=== PATIENT | male | born 1995 | race African-American/Black ===

== ENCOUNTER 2022-02-20 10:18 | Inpatient (IN) ==
--- NOTE | 2022-02-20 10:33 | Emergency Department Note ---
History of Present Illness General Chief complaint: Abdominal Pain Stated complaint: AB PAIN, WEAKNESS History of Present Illness This is a 25 y/o male that presents to the emergency department via EMS with c/o generalized abdominal pain x 2 days and headache status post seizure that occurred 2 days ago. Abdominal pain is described as crampy and shooting with any touch and rated 10/10. Denies nausea and vomiting. Has had multiple episodes of diarrhea, and reports that there was blood on the toilet paper when he wiped but none on the stool or in the toilet. He denies any urinary symptoms and hematuria. Has been experiencing some lightheadedness, which he believes is due to lack of eating. Denies any prior abdominal surgeries or problems. Patient notes he has been staying with a friend. 48 hours ago, he reports he had two seizures that he does not remember but that were described to him by his friend 's mother. He did hit his head and has an abrasion on his left jain area. Denies headache and dizziness. EMS was called for continued seizures and pt was then taken to [facility] per review of record. Patient notes that following the seizure event, he notes that his friend kicked him out of where he was staying, and so he has been homeless for two days. He describes wanting to "stab her right in the chest" for kicking him out, but states that because her two young children were home, he did not. He has not eaten or drank anything for two days. He has also been unable to get his medications, notedly his Seroquel and Depakote, due to an insurance discrepancy reportedly. The only meds he received recently were those given to him in the hospital two days ago. He describes hallucinations he was having this morning of dogs running in front of him that were not really there. No fevers or recent infectious symptoms. Per review of the EMR it appears that the patient was evaluated on 02/18/2022 at 2340 HRS at [facility] for reported seizure activity. Home Medications Medication Instructions Recorded Confirmed Type omeprazole 20 mg tablet,delayed 20 mg PO DAILY 12/17/20 02/20/22 History release albuterol sulfate 90 mcg/actuation 2 inh inhalation QID PRN Shortness 02/21/21 02/20/22 History aerosol inhaler Of Breath Or Wheezing bismuth subsalicylate 262 mg/15 mL 524 mg PO BID PRN gastric upset 01/22/22 02/20/22 History oral suspension (Pepto-Bismol) diphenhydramine HCl 50 mg capsule 50 mg PO HS 01/22/22 02/20/22 History divalproex 250 mg tablet,delayed 250 mg PO AMHS 01/22/22 02/20/22 History release divalproex 500 mg tablet,delayed 1,000 mg PO AMHS 01/22/22 02/20/22 History release (Depakote) hydroxyzine pamoate 50 mg capsule 50 mg PO BID 01/22/22 02/20/22 History quetiapine 100 mg tablet 100 mg PO BID 01/22/22 02/20/22 History Allergies Allergy/AdvReac Type Severity Reaction Status Date / Time No Known Allergies Allergy Verified 01/25/22 20:09 Past Med/Surg History Medical History ADHD Asthma Bipolar disorder Fracture of fifth metacarpal bone No pertinent family history Schizophrenia Seizures Unspecified episodic mood disorder Surgical History No significant past surgical history Social History Smoking Status: Current every day smoker Tobacco Type: Cigarettes Preferred Language: [place] Citizen Feels Safe at Home: Yes Review of Systems A total of 10 systems reviewed and were otherwise negative Physical Exam Vital Signs Vital Signs - 24 hr 02/20/22 10:27 02/20/22 10:57 02/20/22 12:51 Temperature 36.7 C Temperature Source Oral Pulse Rate 69 Pulse Rate [Right Finger] 68 Pulse Rhythm Regular Pulse Rhythm [Right Finger] Regular Respiratory Rate 18 18 Respiratory Effort / Characteristics Non-Labored Spontaneous Respiratory Depth Normal Respiratory Pattern Regular Blood Pressure 149/87 H Blood Pressure [Right Arm] 112/62 Blood Pressure Mean 107 Blood Pressure Mean [Right Arm] 78 Blood Pressure Position [Right Arm] Lying Pulse Oximetry 98 99 97 Oxygen Delivery Method Room Air Room Air Room Air Sepsis Recent Fever Within 48 Hours No Sepsis New/Unexplained Change in Mental Status No Sepsis Action Taken by Nursing No Action Required VITAL SIGNS - Vital signs and nursing notes were reviewed. Stable and afebrile. GENERAL -26-year-old male appearing his stated age who is in no acute distress. Communicates well with provider and answers questions appropriately. SKIN -right sided forehead abrasion noted. No active bleeding. No signs of infection. No meningeal or petechial rash. HEAD - NC/AT. EYES - PERRL with EOMI bilaterally. Sclera anicteric. EARS - No deformities of external structures noted on gross examination bilaterally. No pain elicited with palpation of the tragus bilaterally. External auditory canals without discharge or otorrhea. Tympanic membranes pearly castaneda without retraction or bulging. No fluid or purulent material visualized behind the TM. Handle of malleus, umbo, cone of light, pars tensa/flaccid all easily visualized. NOSE - Midline and without cyanosis. No epistaxis or purulent drainage noted. Septum midline without deviation or septal hematoma noted. MOUTH/OROPHARYNX - Without perioral cyanosis. Buccal mucosa pink and moist and without leukoplakia. Tongue midline with equal elevation of palate bilaterally. No tonsillar hypertrophy, erythema, or exudates noted. Fair dentition noted. NECK - Neck with FROM. No nuchal rigidity. LUNGS - Chest wall symmetric without accessory muscle use, intercostals retractions, or central cyanosis. Normal vesicular breath sounds CTA B/L. No wheezes, rales, or rhonchi appreciated. CARDIAC - RRR with S1/S2. No murmur, rubs, or gallops appreciated. ABDOMEN - Abdominal contour normal without pulsations or visible masses. BS normoactive all four quadrants. there is generalized abdominal tenderness to palpation. No guarding or rigidity. No palpable masses, hepatosplenomegaly, or ascites noted. EXTREMITIES - No clubbing or peripheral cyanosis. +5/5 strength noted in UE/LE bilaterally. NEUROLOGIC - Cranial nerves II through XII grossly intact. PSYCH - A&Ox3 and cooperates fully with examiner. Pt is very pleasant and interacts well with examiner. Course Administered Medications Divalproex Sodium (Divalproex Delay Release 500 Mg Tab) 500 mg PO BID [facility] Stop: 03/22/22 13:59 Last Admin: 02/20/22 14:41 Dose: 500 mg Documented By: MONIQUE Lacosamide (Lacosamide 50 Mg Tablet) 100 mg PO BID [facility] Stop: 03/22/22 13:59 Last Admin: 12/05/22 14:42 Dose: 100 mg Documented By: MONIQUE Discontinued Medications Ioversol (Optiray 350 100ml) 94 ml IV ONCE ONE Stop: 02/20/22 13:13 Last Admin: 02/20/22 13:12 Dose: 94 ml Documented By: RUIZ Medical Decision Making Laboratory Data Result diagrams: 02/20/22 11:20 02/20/22 11:20 Lab Results 02/20/22 02/20/22 02/20/22 Range/Units 11:20 11:20 11:20 WBC 6.42 (4.8-10.8) K/ul RBC 4.18 L (4.63-6.08) M/uL Hgb 13.0 L (14.0-18.0) g/dl Hct 38.0 L (40.1-51.0) % MCV 90.9 (80.0-100.0) fL MCH 31.1 (25.0-34.0) pg MCHC 34.2 (32.0-36.0) g/dL RDW Std Deviation 46.3 (36.4-46.3) fL RDW Coeff of Geraldine 13.7 (11.5-14.5) % Plt Count 263 (130-400) K/uL MPV 11.4 (9.4-12.4) fL Immature Gran % (Auto) 0.2 % Neut % (Auto) 40.1 % Lymph % (Auto) 45.0 % [place] % (Auto) 8.6 % Eos % (Auto) 5.5 % Baso % (Auto) 0.6 % Neut # (Auto) 2.58 (1.4-6.5) K/uL Lymph # (Auto) 2.89 (1.2-3.4) K/uL [place] # (Auto) 0.55 (0.24-0.82) K/uL Eos # (Auto) 0.35 (0-0.50) K/uL Baso # (Auto) 0.04 (0-0.2) K/uL Immature Gran # (Auto) 0.01 (0.00-0.02) K/uL Sodium 139 (136-145) mmol/L Potassium 3.6 (3.5-5.1) mmol/L Chloride 105 (98-107) mmol/L Carbon Dioxide 26 (21-32) mmol/L Anion Gap 8 (3-11) BUN 17 (6-23) mg/dl Creatinine 0.96 (0.6-1.4) mg/dl Est Cr Clr Drug Dosing 118.3 ml/min Est GFR ( Amer) 124.2 ml/min Est GFR (Non-Af Amer) 107.1 ml/min BUN/Creatinine Ratio 17.7 (10-20) Glucose 85 (70-99(Fasting)) mg/dl Calcium 8.9 (8.5-10.1) mg/dl Magnesium 1.7 (1.7-2.4) mg/dl Total Bilirubin 0.4 (0.2-1.0) mg/dl AST 15 (13-39) U/L ALT 13 (7-52) U/L Alkaline Phosphatase 41 (34-104) U/L Troponin I High Sens 2.4 (0-20) pg/ml Total Protein 6.2 (6.0-8.3) gm/dl Albumin 3.8 (3.4-5.0) gm/dl Globulin 2.4 L (2.5-4.0) gm/dl Albumin/Globulin Ratio 1.6 (0.9-2) Lipase 26 (11-82) U/L TSH (0.300-4.500) uIu/ml Urine Color Urine Appearance (Clear) Urine pH (4.5-7.5) Ur Specific [place] (1.000-1.030) Urine Protein (Negative) Urine Glucose (UA) (Negative) Urine Ketones (Negative) Urine Blood (Negative) Urine Nitrite (Negative) Urine Bilirubin (Negative) Urine Urobilinogen (Negative) Ur Leukocyte Esterase (Negative) Salicylates (3.0-30) mg/dl Urine Opiates Screen (Neg) Ur Methadone, Qual (Neg) Acetaminophen (10-30) ug/ml Urine Barbiturates (Neg) Valproic Acid (50-100) mcg/ml Ur Phencyclidine (PCP) (Neg) U Amphetamin/Meth Scrn (Neg) MDMA (Ecstasy) Screen (Neg) U Benzodiazepines Scrn (Neg) Ur Cocaine Metabolite (Neg) U Marijuana (THC) Screen (Neg) Ethyl Alcohol mg/dL < 10.0 (<10.0) mg/dl SARS-CoV-2, RNA, NAAT (NEGATIVE) 02/20/22 02/20/22 02/20/22 Range/Units 11:20 11:20 11:20 WBC (4.8-10.8) K/ul RBC (4.63-6.08) M/uL Hgb (14.0-18.0) g/dl Hct (40.1-51.0) % MCV (80.0-100.0) fL MCH (25.0-34.0) pg MCHC (32.0-36.0) g/dL RDW Std Deviation (36.4-46.3) fL RDW Coeff of Geraldine (11.5-14.5) % Plt Count (130-400) K/uL MPV (9.4-12.4) fL Immature Gran % (Auto) % Neut % (Auto) % Lymph % (Auto) % [place] % (Auto) % Eos % (Auto) % Baso % (Auto) % Neut # (Auto) (1.4-6.5) K/uL Lymph # (Auto) (1.2-3.4) K/uL [place] # (Auto) (0.24-0.82) K/uL Eos # (Auto) (0-0.50) K/uL Baso # (Auto) (0-0.2) K/uL Immature Gran # (Auto) (0.00-0.02) K/uL Sodium (136-145) mmol/L Potassium (3.5-5.1) mmol/L Chloride (98-107) mmol/L Carbon Dioxide (21-32) mmol/L Anion Gap (3-11) BUN (6-23) mg/dl Creatinine (0.6-1.4) mg/dl Est Cr Clr Drug Dosing ml/min Est GFR ( Amer) ml/min Est GFR (Non-Af Amer) ml/min BUN/Creatinine Ratio (10-20) Glucose (70-99(Fasting)) mg/dl Calcium (8.5-10.1) mg/dl Magnesium (1.7-2.4) mg/dl Total Bilirubin (0.2-1.0) mg/dl AST (13-39) U/L ALT (7-52) U/L Alkaline Phosphatase (34-104) U/L Troponin I High Sens (0-20) pg/ml Total Protein (6.0-8.3) gm/dl Albumin (3.4-5.0) gm/dl Globulin (2.5-4.0) gm/dl Albumin/Globulin Ratio (0.9-2) Lipase (11-82) U/L TSH 1.820 (0.300-4.500) uIu/ml Urine Color Yellow Urine Appearance Clear (Clear) Urine pH 7.0 (4.5-7.5) Ur Specific [place] 1.029 (1.000-1.030) Urine Protein Negative (Negative) Urine Glucose (UA) Negative (Negative) Urine Ketones 1+ H (Negative) Urine Blood Negative (Negative) Urine Nitrite Negative (Negative) Urine Bilirubin Negative (Negative) Urine Urobilinogen Negative (Negative) Ur Leukocyte Esterase Negative (Negative) Salicylates < 3.0 L (3.0-30) mg/dl Urine Opiates Screen (Neg) Ur Methadone, Qual (Neg) Acetaminophen < 3 L (10-30) ug/ml Urine Barbiturates (Neg) Valproic Acid (50-100) mcg/ml Ur Phencyclidine (PCP) (Neg) U Amphetamin/Meth Scrn (Neg) MDMA (Ecstasy) Screen (Neg) U Benzodiazepines Scrn (Neg) Ur Cocaine Metabolite (Neg) U Marijuana (THC) Screen (Neg) Ethyl Alcohol mg/dL (<10.0) mg/dl SARS-CoV-2, RNA, NAAT (NEGATIVE) 02/20/22 02/20/22 02/20/22 Range/Units 11:20 11:20 12:48 WBC (4.8-10.8) K/ul RBC (4.63-6.08) M/uL Hgb (14.0-18.0) g/dl Hct (40.1-51.0) % MCV (80.0-100.0) fL MCH (25.0-34.0) pg MCHC (32.0-36.0) g/dL RDW Std Deviation (36.4-46.3) fL RDW Coeff of Geraldine (11.5-14.5) % Plt Count (130-400) K/uL MPV (9.4-12.4) fL Immature Gran % (Auto) % Neut % (Auto) % Lymph % (Auto) % [place] % (Auto) % Eos % (Auto) % Baso % (Auto) % Neut # (Auto) (1.4-6.5) K/uL Lymph # (Auto) (1.2-3.4) K/uL [place] # (Auto) (0.24-0.82) K/uL Eos # (Auto) (0-0.50) K/uL Baso # (Auto) (0-0.2) K/uL Immature Gran # (Auto) (0.00-0.02) K/uL Sodium (136-145) mmol/L Potassium (3.5-5.1) mmol/L Chloride (98-107) mmol/L Carbon Dioxide (21-32) mmol/L Anion Gap (3-11) BUN (6-23) mg/dl Creatinine (0.6-1.4) mg/dl Est Cr Clr Drug Dosing ml/min Est GFR ( Amer) ml/min Est GFR (Non-Af Amer) ml/min BUN/Creatinine Ratio (10-20) Glucose (70-99(Fasting)) mg/dl Calcium (8.5-10.1) mg/dl Magnesium (1.7-2.4) mg/dl Total Bilirubin (0.2-1.0) mg/dl AST (13-39) U/L ALT (7-52) U/L Alkaline Phosphatase (34-104) U/L Troponin I High Sens (0-20) pg/ml Total Protein (6.0-8.3) gm/dl Albumin (3.4-5.0) gm/dl Globulin (2.5-4.0) gm/dl Albumin/Globulin Ratio (0.9-2) Lipase (11-82) U/L TSH (0.300-4.500) uIu/ml Urine Color Urine Appearance (Clear) Urine pH (4.5-7.5) Ur Specific [place] (1.000-1.030) Urine Protein (Negative) Urine Glucose (UA) (Negative) Urine Ketones (Negative) Urine Blood (Negative) Urine Nitrite (Negative) Urine Bilirubin (Negative) Urine Urobilinogen (Negative) Ur Leukocyte Esterase (Negative) Salicylates (3.0-30) mg/dl Urine Opiates Screen Neg (Neg) Ur Methadone, Qual Neg (Neg) Acetaminophen (10-30) ug/ml Urine Barbiturates Neg (Neg) Valproic Acid 26 L (50-100) mcg/ml Ur Phencyclidine (PCP) Neg (Neg) U Amphetamin/Meth Scrn Neg (Neg) MDMA (Ecstasy) Screen Neg (Neg) U Benzodiazepines Scrn Neg (Neg) Ur Cocaine Metabolite Neg (Neg) U Marijuana (THC) Screen Neg (Neg) Ethyl Alcohol mg/dL (<10.0) mg/dl SARS-CoV-2, RNA, NAAT NEGATIVE (NEGATIVE) Imaging Data Radiologist's Impression: Abdomen/Pelvis CT 02/20/22 10:[address] WITH IV CONTRAST CT DOSE: 1026.57 mGycm HISTORY: Acute generalized abdominal pain with seizure like activity abd pain x 2 days following seizure TECHNIQUE: Multiaxial CT images of the abdomen and pelvis were performed following the IV administration of 94 cc of Optiray, A dose lowering technique was utilized adhering to the principles of ALARA. COMPARISON STUDY: CT abdomen and pelvis 01/14/2021 FINDINGS: Clear lung bases. Study is degraded by respiratory motion artifact. Unremarkable spleen, pancreas, gallbladder and adrenal glands. Unremarkable liver. Patency of the hepatic and portal veins. Unremarkable kidneys. No hydronephrosis. Urinary bladder wall thickening with partial distention. There is an equivocal urachal diverticulum of the urinary bladder which is likely secondary to partial distention, not visualized on the prior study. The prostate is prominent in size. Aorta and IVC are unremarkable. There is no lymphadenopathy identified. No bowel obstruction or bowel wall thickening. Moderate colonic fecal retention. The appendix measures upper limits of normal at 7 mm however demonstrates air within the tip and does not appear to be inflamed. No ascites or mesenteric inflammation. Unremarkable soft tissues. No acute fracture identified. IMPRESSION: 1. No acute intra-abdominal or intrapelvic abnormality. 2. No bowel obstruction or bowel wall thickening. ACT 112: Negative or not required by law. The above report was generated using voice recognition software. It may contain grammatical, syntax or spelling errors. Electronically signed by: Noe Cuba M.D. 02/20/2022 1:[address] 02/20/22 10:58 CT head/brain wo con CLINICAL HISTORY: 26 years-old Male with seizure 2 days ago, R sided head pain. Acute seizure like activity. Acute headache. TECHNIQUE: Multiple axial CT images of the head were obtained without contrast. A dose lowering technique was utilized adhering to the principles of ALARA. CT DOSE: 729.78 mGycm COMPARISON: Head CT 01/25/2022 FINDINGS: No acute intracranial hemorrhage, midline shift, intracranial mass, hydrocephalus, territorial ischemia or abnormal extra-axial collection. A periventricular hypodensity adjacent to the frontal horn of the right lateral ventricle remains unchanged. The calvarium is intact. Minimal mucosal thickening of the paranasal sinuses. Hypoplastic frontal sinuses. Mastoid air cells are clear. Unremarkable soft tissues and orbits. IMPRESSION: No acute intracranial abnormality. ACT 112: Negative or not required by law. The above report was generated using voice recognition software. It may contain grammatical, syntax or spelling errors. Electronically signed by: Noe Cuba M.D. 02/20/2022 1:19 PM [facility] Narrative Patient was seen and evaluated as above in room C05. Review was performed of nursing notes and vital signs. I did review pertinent previous visits and patie nt history. After obtaining a thorough history and physical examination the above work up was performed. Patient presents to us today via EMS for evaluation of right-sided headache, abdominal pain x2 days and also homicidal ideations of which she is desiring a 201 voluntary admission for. The patient clinically is well-appearing and nontoxic. Patient denies any seizure activity today. He does not seem postictal. He is conversing well. Options of care were discussed with the patient. IV access was established. Labs were drawn. Seizure precautions were initiated for safety. Labs reveal no leukocytosis. Mild anemia noted with hemoglobin of 13. There is no emergent metabolic disturbance. Troponin is negative. TSH reveals euthyroid state. Lipase is normal. Urinalysis does not suggest infection. Urine tox screen negative. Salicylate and acetaminophen levels are negative. Valproic acid level is subtherapeutic and low at 26. COVID testing negative. CT scan was obtained of the head and felt to be warranted noting the patient's worsening ongoing right-sided headache status post seizure that occurred 2 days ago. It is felt that the benefit outweighs risk. Results of the CT as above. I also proceeded with a CT scan of the abdomen and pelvis to evaluate his abdominal discomfort which also was essentially negative. Per review of the [facility] record it appears that he does have recent C. difficile diagnosis. He notes he did not take any of the medication prescribed for this. In addition, he has not been taking any of his seizure medication. I did review EMR through the [facility] record and fill history and was able to identify his correct medication. I did order him Depakote, Seroquel, and Vimpat. Patient then felt best managed in the inpatient setting with further psychiatric management. Patient in agreement. Case discussed with the hospitalist. Please refer to further documentation regarding his stay. Case was discussed with the attending physician. GCS: 15 In the evaluation and treatment of this patient the following differential diagnoses were entertained: Meningitis, encephalitis, seizure, acute abdomen, C. difficile, gastroenteritis, acute appendicitis, UTI, among others. Impression & Plan Abdominal pain, History of seizures, Forehead abrasion, Homicidal ideation Discharge Plan Visit Data Chief Complaint: Abdominal Pain Stated Complaint: AB PAIN, WEAKNESS ED Provider: Sebastien Suero ED Midlevel Provider: Kenrick Ruiz Discharge Problem: Abdominal pain, History of seizures, Forehead abrasion, Homicidal ideation Patient Disposition: Admitted As Inpatient Condition: Good Discharge Instructions Interventions: ED Discharge Assessment Last Done: 02/20/22 15:11
[2022-02-20 11:48] LABS: Basophils # (auto) 0.04 K/uL (0-0.2); Basophils % (auto) 0.6 %; Eosinophils # (auto) 0.35 K/uL (0-0.50); Eosinophils % (auto) 5.5 %; Immature Granulocytes # (auto) 0.01 K/uL (0.00-0.02); Immature Granulocytes % (auto) 0.2 %; Lymphocytes # (auto) 2.89 K/uL (1.2-3.4); Mean Corpuscular Hemoglobin 31.1 pg (25.0-34.0); Mean Corpuscular Hgb Conc 34.2 g/dL (32.0-36.0); Mean Corpuscular Volume 90.9 fL (80.0-100.0); Mean Platelet Volume 11.4 fL (9.4-12.4); Monocytes # (auto) 0.55 K/uL (0.24-0.82); Monocytes % (auto) 8.6 %; Neutrophils # (auto) 2.58 K/uL (1.4-6.5); Neutrophils % (auto) 40.1 %; Platelet Count 263 K/uL (130-400); RDW Coefficient of Variation 13.7 % (11.5-14.5); RDW Standard Deviation 46.3 fL (36.4-46.3); Red Blood Count 4.18 M/uL (4.63-6.08); White Blood Count 6.42 K/ul (4.8-10.8)
[2022-02-20 11:51] LABS: Appearance Urine Clear (Clear); Bilirubin Urine Negative (Negative); Blood Urine Negative (Negative); Color Urine Yellow; Glucose Urine UA Negative (Negative); Ketones Urine 1+ (Negative); Leukocyte Esterase Urine Negative (Negative); Nitrite Urine Negative (Negative); Protein Urine Negative (Negative); Specific Gravity Urine 1.029 (1.000-1.030); Urobilinogen Urine Negative (Negative)
[2022-02-20 12:17] LABS: Albumin Globulin Ratio 1.6 (0.9-2); Albumin Level 3.8 gm/dl (3.4-5.0); BUN Creatinine Ratio 17.7 (10-20); Bilirubin,Total 0.4 mg/dl (0.2-1.0); Calcium 8.9 mg/dl (8.5-10.1); Creatinine Clr Calc Pharmacy 118.3 ml/min; Est GFR (African American) 124.2 ml/min; Est GFR (Non-African American) 107.1 ml/min; Globulin 2.4 gm/dl (2.5-4.0); Magnesium 1.7 mg/dl (1.7-2.4); Potassium 3.6 mmol/L (3.5-5.1); Total Protein 6.2 gm/dl (6.0-8.3); Troponin I High Sensitivity 2.4 pg/ml (0-20)
[2022-02-20 12:22] LABS: Acetaminophen < 3 ug/ml (10-30); Amphetamines+Metham, Urine Neg (Neg); Barbiturates, Urine Neg (Neg); Benzodiazepine, Urine Neg (Neg); Cocaine, Urine Neg (Neg); MDMA (Ecstacy), Urine Neg (Neg); Methadone, Urine Neg (Neg); Opiate, Urine Neg (Neg); Phencyclidine, Urine Neg (Neg); Salicylate < 3.0 mg/dl (3.0-30)
[2022-02-20] MEDS ORDERED: OPTIRAY 350 100ml IV ONE (13:12)
--- NOTE | 2022-02-20 13:20 | CT Scan Report ---
CT head/brain wo con CLINICAL HISTORY: 26 years-old Male with seizure 2 days ago, R sided head pain. Acute seizure like a ctivity. Acute headache. TECHNIQUE: Multiple axial CT images of the head were obtained without contrast. A dose lowering tech nique was utilized adhering to the principles of ALARA. CT DOSE: 729.78 mGycm COMPARISON: Head CT 01/25/2022 FINDINGS: No acute intracranial hemorrhage, midline shift, intracranial mass, hydrocephalus, territorial ischem ia or abnormal extra-axial collection. A periventricular hypodensity adjacent to the frontal horn of the right lateral ventricle remains unchanged. The calvarium is intact. Minimal mucosal thickening of the paranasal sinuses. Hypoplastic frontal si nuses. Mastoid air cells are clear. Unremarkable soft tissues and orbits. IMPRESSION: No acute intracranial abnormality. ACT 112: Negative or not required by law. The above report was generated using voice recognition software. It may contain grammatical, syntax o r spelling errors. Electronically signed by: Noe Cuba M.D. 02/20/2022 1:19 PM
--- NOTE | 2022-02-20 13:33 | CT Scan Report ---
ABDOMEN AND PELVIS CT WITH IV CONTRAST CT DOSE: 1026.57 mGycm HISTORY: Acute generalized abdominal pain with seizure like activity abd pain x 2 days following sei zure TECHNIQUE: Multiaxial CT images of the abdomen and pelvis were performed following the IV administrat ion of 94 cc of Optiray, A dose lowering technique was utilized adhering to the principles of ALARA. COMPARISON STUDY: CT abdomen and pelvis 01/14/2021 FINDINGS: Clear lung bases. Study is degraded by respiratory motion artifact. Unremarkable spleen, pa ncreas, gallbladder and adrenal glands. Unremarkable liver. Patency of the hepatic and portal veins. Unremarkable kidneys. No hydronephrosis. Urinary bladder wall thickening with partial distention. The re is an equivocal urachal diverticulum of the urinary bladder which is likely secondary to partial d istention, not visualized on the prior study. The prostate is prominent in size. Aorta and IVC are un remarkable. There is no lymphadenopathy identified. No bowel obstruction or bowel wall thickening. Moderate colonic fecal retention. The appendix measure s upper limits of normal at 7 mm however demonstrates air within the tip and does not appear to be in flamed. No ascites or mesenteric inflammation. Unremarkable soft tissues. No acute fracture identifie d. IMPRESSION: 1. No acute intra-abdominal or intrapelvic abnormality. 2. No bowel obstruction or bowel wall thickening. ACT 112: Negative or not required by law. The above report was generated using voice recognition software. It may contain grammatical, syntax o r spelling errors. Electronically signed by: Noe Cuba M.D. 02/20/2022 1:32 PM
--- NOTE | 2022-02-20 14:19 | History & Physical Report ---
Date of Service February 20, 2022 Assessment & Plan (1) Schizophrenia: (2) Bipolar disorder: (3) ADHD: (4) Abdominal pain: (5) History of seizures: Plan Mr. Samuel Sinclair is a 26 year old male who presented to the ED from the [facility] where he started to have abdominal pain. A CT abdomen and pelvis was negative. Patient reports that his pain has improved. Patient also has a complex seizure history and is not compliant with his medications nor his outpatient appointments. Reportedly he was admitted at [facility] 2 days ago for .seizures and was postictal on arrival. His last scheduled neuro appointment was 04/2021 and he did attend a sick telehealth appointment on 05/2021. Schizophrenia: Bipolar disorder: ADHD: Prescribed Seroquel 100 mg p.o. twice daily; not compliant; continue while here Prescribed Divalproex for anxiety; not complaint; continue while here Homicidal Ideation: Patient expressed that he does have thoughts of harming a woman named Darlyn and has a plan and weapon of choice Discussed with Psychiatry. patient is a voluntary 201. Ok to admit on telemetry Will place on 1:1 observation until cleared by Psych Psych does not feel patient is an elopement risk based on history; however, patient to be placed near nursing station and visible. Abdominal pain: On exam and ROS patient denies current abdominal pain Abdominal CT: Negative Patient did have recent C. difficile diagnosis at [facility]; however patient denied taking any medications; recheck stool sample here and treat as necessary Will place on contact precautions until stool sample obtained 1L NS Bolus for hydration; reevaluate drug tox screen negative H/O Seizures: Known seizure disorder Non-compliant with neurology appointments or medication use post-ictal presentation at [facility] on 02/18/22 Prescribed Depakote to 50 mg twice daily; not compliant; restarted in ED Prescribed Lacosamide; not compliant; restarted in ED seizure precautions ordered GERD: Takes omeprazole; continue Disposition: PCP: none; has had [address] Johnson April 2021 CODE STATUS: Full code VTE prophylaxis: Lovenox SQ I personally was able to review all current laboratory work and diagnostic images obtained in the ED. Additionally, I was able to review the patients past medication reconciliation and history with direct visualization in the patients chart. This patient was seen in collaboration with Dr. Carranza. Please see her addendum for further details. History of Present Illness Chief Complaint: abdominal pain Primary Care Provider: NO PCP - was scheduled to see Dr. Johnson Mr. Samuel Sinclair is a 26 year old male who presented to the ED from the [facility] where he started to have abdominal pain. A CT abdomen and pelvis was negative. Patient reports that his pain has improved. Patient also has a complex seizure history and is not compliant with his medications nor his outpatient appointments. Reportedly he was admitted at [facility] 2 days ago for seizures and was postictal on arrival there. His last scheduled neuro appointment was 04/2021 and he did attend a telehealth appointment on 05/2021. Patient was noted to have C. difficile at [facility] admission and started on vancomycin however patient declined taking it. We will recheck here in ED BMP and CBC are unremarkable. Troponin negative. Patient reports not taking his prescribed Depakote or Seroquel (restarted in ED). [facility] but says he doesn't feel safe there. In the ED, told staff he wants to be voluntarily admitted for 201 homicidal ideation with a plan to stab his girlfriend with a knife and has intent to do so; Psych aware and 1:[address]. Other PMH includes schizophrenia, bipolar and ADHD. Patient was lying flat in his bed asleep when I entered the room. He startled to verbal stimuli and denied having any conversation with me but did state that he was not having any pain that he knew of. Patient is hemodynamically stable. I did discuss directly with on-call psychiatry who stated that based on his current presentation she would feel comfortable with him being admitted on MedSurg telemetry with a one-to-one for safety until cleared by psychiatry. Patient does not appear to be a threat to himself and was not aggressive during evaluation; however, should be placed near nursing station with full visibility of patient. Patient will be admitted for further evaluation and management. Please see A/P for further details. Allergies Allergy/AdvReac Type Severity Reaction Status Date / Time No Known Allergies Allergy Verified 01/25/22 20:09 Home Medications Medication Instructions Recorded Confirmed Type omeprazole 20 mg tablet,delayed 20 mg PO DAILY 12/17/20 02/20/22 History release albuterol sulfate 90 mcg/actuation 2 inh inhalation QID PRN Shortness 02/21/21 02/20/22 History aerosol inhaler Of Breath Or Wheezing divalproex 250 mg tablet,delayed 250 mg PO AMHS 01/22/22 02/20/22 History release divalproex 500 mg tablet,delayed 500 mg PO AMHS 01/22/22 02/20/22 History release (Depakote) hydroxyzine pamoate 50 mg capsule 50 mg PO BID 01/22/22 02/20/22 History quetiapine 100 mg tablet 100 mg PO BID 01/22/22 02/20/22 History Past Med/Surg History Medical History ADHD Asthma Bipolar disorder Fracture of fifth metacarpal bone No pertinent family history Schizophrenia Seizures Unspecified episodic mood disorder Surgical History No significant past surgical history Social History Smoking Status: Current every day smoker Tobacco Type: Cigarettes Do You Dip or Chew Tobacco: Yes; Tobacco Cessation Education Requested by Patient: No Hx Alcohol Use: No Hx Substance Use: No Preferred Language: Malay Physical Education Professor Required: No Beliefs That Will Affect Care: None Current Living Situation: Homeless Other Information That Helps Us Care for You: No Feels Safe at Home: Yes Safety Concerns: Feels Safe At This Time Review of Systems Review of Systems: Neuro: (-) Falls, trauma, slurred speech HEENT: (-) TEE, dizziness, dysphagia, visual or auditory changes CV: (-) CP, palpitations, swelling Resp: (-) SOB GI: (-) appetite changes, N/V/D, bowel changes : (-) urinary changes Skin: (-) rashes Psych: (-) anxiety, depression Physical Exam Physical Exam: Neuro: AAOx1, groggy, PERRLA,pupils 4cm bilaterally -no aphagia, memory changes, CNII-XII grossly intact HEENT: head normocephalic, moist mucus membranes CV: S1/S2, (-) M/G/R, (-) edema, cap refill < 3 seconds Resp: Lungs CTA in all rodarte. On RA GI: Abdomen S/NT/ND, Ax4 bowel sounds, (-) CVA tenderness Musculoskeletal: 5/5 B/L UE strength, 5/5 B/L LE strength. No gait disturbance Skin: (-) rashes , (-) erythema. Psych: startling mood Results & Data Results & Data ([place]) Vital Signs (Past 12 Hours) Vital Signs Temp Pulse Pulse Resp BP BP Pulse Ox 02/20/22 12:51 68 18 112/62 97 02/20/22 10:57 99 02/20/22 10:27 36.7 C 69 18 149/87 H 98 O2 Del Method 02/20/22 12:51 Room Air 02/20/22 10:57 Room Air 02/20/22 10:27 Room Air Laboratory Results Short CBC 02/20/22 Range/Units 11:20 WBC 6.42 (4.8-10.8) K/ul Hgb 13.0 L (14.0-18.0) g/dl Hct 38.0 L (40.1-51.0) % Plt Count 263 (130-400) K/uL BMP 02/20/22 11:20 Sodium 139 Potassium 3.6 Chloride 105 Carbon Dioxide 26 BUN 17 Creatinine 0.96 Glucose 85 Calcium 8.9 Liver Function 02/20/22 Range/Units 11:20 Total Bilirubin 0.4 (0.2-1.0) mg/dl AST 15 (13-39) U/L ALT 13 (7-52) U/L Alkaline Phosphatase 41 (34-104) U/L Albumin 3.8 (3.4-5.0) gm/dl Urine 02/20/22 Range/Units 11:20 Urine Color Yellow Urine Appearance Clear (Clear) Urine pH 7.0 (4.5-7.5) Ur Specific [place] 1.029 (1.000-1.030) Urine Protein Negative (Negative) Urine Glucose (UA) Negative (Negative) Diagnostic Findings Abdomen/Pelvis CT 02/20/22 10:[address] WITH IV CONTRAST CT DOSE: 1026.57 mGycm HISTORY: Acute generalized abdominal pain with seizure like activity abd pain x 2 days following seizure TECHNIQUE: Multiaxial CT images of the abdomen and pelvis were performed following the IV administration of 94 cc of Optiray, A dose lowering technique was utilized adhering to the principles of ALARA. COMPARISON STUDY: CT abdomen and pelvis 01/14/2021 FINDINGS: Clear lung bases. Study is degraded by respiratory motion artifact. Unremarkable spleen, pancreas, gallbladder and adrenal glands. Unremarkable liver. Patency of the hepatic and portal veins. Unremarkable kidneys. No hydronephrosis. Urinary bladder wall thickening with partial distention. There is an equivocal urachal diverticulum of the urinary bladder which is likely secondary to partial distention, not visualized on the prior study. The prostate is prominent in size. Aorta and IVC are unremarkable. There is no lymphadenopathy identified. No bowel obstruction or bowel wall thickening. Moderate colonic fecal retention. The appendix measures upper limits of normal at 7 mm however demonstrates air within the tip and does not appear to be inflamed. No ascites or mesenteric inflammation. Unremarkable soft tissues. No acute fracture identified. IMPRESSION: 1. No acute intra-abdominal or intrapelvic abnormality. 2. No bowel obstruction or bowel wall thickening. ACT 112: Negative or not required by law. The above report was generated using voice recognition software. It may contain grammatical, syntax or spelling errors. Electronically signed by: Noe Cuba M.D. 02/20/2022 1:[address] 02/20/22 10:58 CT head/brain wo con CLINICAL HISTORY: 26 years-old Male with seizure 2 days ago, R sided head pain. Acute seizure like activity. Acute headache. TECHNIQUE: Multiple axial CT images of the head were obtained without contrast. A dose lowering technique was utilized adhering to the principles of ALARA. CT DOSE: 729.78 mGycm COMPARISON: Head CT 01/25/2022 FINDINGS: No acute intracranial hemorrhage, midline shift, intracranial mass, hydr ocephalus, territorial ischemia or abnormal extra-axial collection. A periventricular hypodensity adjacent to the frontal horn of the right lateral ventricle remains unchanged. The calvarium is intact. Minimal mucosal thickening of the paranasal sinuses. Hypoplastic frontal sinuses. Mastoid air cells are clear. Unremarkable soft tissues and orbits. IMPRESSION: No acute intracranial abnormality. ACT 112: Negative or not required by law. The above report was generated using voice recognition software. It may contain grammatical, syntax or spelling errors. Electronically signed by: Noe Cuba M.D. 02/20/2022 1:19 PM Code Status & VTE Plan Code Status Full code in the event of cardiac or respiratory arrest VTE Prophylaxis Plan VTE Prophylaxis will be ordered: Yes Supervising Physician Co-Signing Physician Notes 26 yo M with epilepsy noncompliant with medications because he has not had the finances to get the medications. He presents today with homicidal ideations about wanting to stab his girlfriend in the chest because she made a disrespectful remark about his recently grandmother. He is still feeling an intention for this and states that he knows himself and that he will follow through with his intentions. I asked if he had ever hurt himself or others in the past and he said yes. He also endorses abdominal cramping when he eats food, and states he hasn't eaten anything in two days. He also reports not being able to drink water or fluids. He denies fevers, chills or vomiting and denies any blood per rectum or diarrhea. On record review, he was recently hospitalized for SI/HI last month and has at least two ER visits reporting uncontrolled seizure and abdominal pain. On physical exam he has eyes closed and is mumbling and hyperverbal. He is able to give a history and will follow instructions. PERRL, mucous membranes are moist, OP is clear. He has an abrasion on his right forehead. Skin is warm and dry. He is oriented. Lungs are clear to auscultation, cardiac assessment reveals S1/2 heard without murmurs, gallops or rubs and no peripheral edema or JVD. 5/5 strength throughout, he is able to sit up independently. He has no gross neurologic deficits at this time. Workup reveals a CT abdomen with no acute abnormality. A head CT was also clear. WBC 6,electrolytes and renal function are within normal limits. Glucose and mag are WNL. HS trop is negative at 2.4, TSH is 1/820. Urine tox screen is negative today. He has a positive screen for marijuana in the last few weeks on record review. EKG today revelas SR 65 and no evidence of acute ischemia. Overall, this is a 26 yo epileptic man with homicidal ideations and reported abdominal cramping of uncertain etiology. He has a recent history of hospitalization last month for mental health treatment and remains homicidal/suicidal today. He reports noncompliance with his seizure medications at home as he has no money or way to get these reportedly. He was restarted on these , including lacosamide and depakote immediately in the ER and remains on seizure precautions. He also reports that "being off my meds" makes him behave in a worse way. He has quietapine 100mg PO BID and hydroxyzine +diphenhydramine listed on his home medication list. For now, would support him with clear liquid diet and IVF and appreciate psychiatry involvement in the case. Cont strict 1:1 sitter with active plans being verbalized. Cont with home psychiatric medications. DO Dillon (1) Abdominal pain Abdominal location: generalized Qualified Code(s): R10.84 - Generalized abdominal pain
[2022-02-20] MEDS: DIVALPROEX DELAY RELEASE 500 MG TAB PO SCH ×2 (14:41→22:17)
[2022-02-20] MEDS: LACOSAMIDE 50 MG TABLET PO SCH ×2 (14:42→22:58)
[2022-02-20] MEDS ORDERED: ALUMINUM/MAGNESIUM SUSP 30 ML UDC PO PRN (15:28)
[2022-02-20] MEDS ORDERED: MAGNESIUM HYDROXIDE SUSP 30 ML UDC PO PRN (15:28)
[2022-02-20] MEDS ORDERED: ONDANSETRON INJ 2 MG/ML 2 ML VIAL IV PRN (15:28)
--- NOTE | 2022-02-20 16:17 | Communication Note ---
Date of Service: February 20, 2022 26 yo M with epilepsy noncompliant with medications because he has not had the finances to get the medications. He presents today with homicidal ideations about wanting to stab his girlfriend in the chest because she made a disrespectful remark about his recently grandmother. He is still feeling an intention for this and states that he knows himself and that he will follow through with his intentions. I asked if he had ever hurt himself or others in the past and he said yes. He also endorses abdominal cramping when he eats food, and states he hasn't eaten anything in two days. He also reports not being able to drink water or fluids. He denies fevers, chills or vomiting and denies any blood per rectum or diarrhea. On record review, he was recently hospitalized for SI/HI last month and has at least two ER visits reporting uncontrolled seizure and abdominal pain. On physical exam he has eyes closed and is mumbling and hyperverbal. He is able to give a history and will follow instructions. PERRL, mucous membranes are moist, OP is clear. He has an abrasion on his right forehead. Skin is warm and dry. He is oriented. Lungs are clear to auscultation, cardiac assessment reveals S1/2 heard without murmurs, gallops or rubs and no peripheral edema or JVD. 5/5 strength throughout, he is able to sit up independently. He has no gross neurologic deficits at this time. Workup reveals a CT abdomen with no acute abnormality. A head CT was also clear. WBC 6,electrolytes and renal function are within normal limits. Glucose and mag are WNL. HS trop is negative at 2.4, TSH is 1/820. Urine tox screen is negative today. He has a positive screen for marijuana in the last few weeks on record review. EKG today revelas SR 65 and no evidence of acute ischemia. Overall, this is a 26 yo epileptic man with homicidal ideations and reported abdominal cramping of uncertain etiology. He has a recent history of hospitali zation last month for mental health treatment and remains homicidal/suicidal today. He reports noncompliance with his seizure medications at home as he has no money or way to get these reportedly. He was restarted on these , including lacosamide and depakote immediately in the ER and remains on seizure precautions. He also reports that "being off my meds" makes him behave in a worse way. He has quietapine 100mg PO BID and hydroxyzine +diphenhydramine listed on his home medication list. For now, would support him with clear liquid diet and IVF and appreciate psychiatry involvement in the case. Cont strict 1:1 sitter with active plans being verbalized. Cont with home psychiatric medications. Dillon,
[2022-02-20] MEDS ORDERED: SODIUM CHLORIDE 0.9% 1000ML 1,000 ML IV ONE (16:37)
--- NOTE | 2022-02-20 17:10 | Electrocardiogram Report ---
Test Reason : Blood Pressure : / mmHG Vent. Rate : 065 BPM Atrial Rate : 065 BPM P-R Int : 176 ms QRS Dur : 088 ms QT Int : 390 ms P-R-T Axes : 043 048 038 degrees QTc Int : 405 ms Normal sinus rhythm with sinus arrhythmia Early repolarization Normal ECG When compared with ECG of 25-JAN-2022 18:20, No significant change was found Confirmed by Julian Johnson ([id number]) on 02/20/2022 5:10:04 PM Referred By: REFERRED SELF Confirmed By:Julian Johnson
[2022-02-20] MEDS ORDERED: ALBUTEROL HFA 8 GM INHALER INH PRN (17:49)
[2022-02-20] MEDS: QUEtiapine FUMARATE 100 MG TABLET PO SCH (22:17)
[2022-02-20] MEDS: DIVALPROEX DELAY RELEASE 250 MG TABEC PO SCH (22:18)
[2022-02-20] MEDS: hydrOXYzine HCl 25 MG TAB PO SCH (22:18)
[2022-02-20] MEDS: ACETAMINOPHEN 325 MG TAB PO PRN (23:00)
[2022-02-21] MEDS ORDERED: PANTOprazole 40 MG TAB PO SCH (09:00)
[2022-02-21] MEDS: hydrOXYzine HCl 25 MG TAB PO SCH ×2 (10:01→22:21)
[2022-02-21] MEDS: DIVALPROEX DELAY RELEASE 250 MG TABEC PO SCH ×2 (10:01→22:10)
[2022-02-21] MEDS: QUEtiapine FUMARATE 100 MG TABLET PO SCH (10:01)
[2022-02-21] MEDS: DIVALPROEX DELAY RELEASE 500 MG TAB PO SCH ×2 (10:02→22:11)
[2022-02-21] MEDS ORDERED: SUCRALFATE 1 GM/10 ML UDC PO SCH (10:05)
[2022-02-21] MEDS: ACETAMINOPHEN 325 MG TAB PO PRN ×2 (10:06→22:21)
[2022-02-21] MEDS: PANTOprazole 40 MG in SYRINGE 0 ML IV SCH ×2 (10:54→22:11)
[2022-02-21] MEDS: LACOSAMIDE 50 MG TABLET PO SCH ×2 (10:54→22:53)
[2022-02-21 11:17] LABS: Hematocrit (blood only) 38.2 % (40.1-51.0); Hemoglobin 13.1 g/dl (14.0-18.0); Mean Corpuscular Hgb Conc 34.3 g/dL (32.0-36.0); Mean Corpuscular Volume 90.5 fL (80.0-100.0); Mean Platelet Volume 10.9 fL (9.4-12.4); Platelet Count 220 K/uL (130-400); RDW Coefficient of Variation 13.8 % (11.5-14.5); RDW Standard Deviation 45.9 fL (36.4-46.3); Red Blood Count 4.22 M/uL (4.63-6.08)
[2022-02-21 11:48] LABS: BUN Creatinine Ratio 11.7 (10-20); Calcium 9.3 mg/dl (8.5-10.1); Creatinine Clr Calc Pharmacy 102.3 ml/min; Est GFR (African American) 104.2 ml/min; Est GFR (Non-African American) 89.9 ml/min; Magnesium 1.7 mg/dl (1.7-2.4); Potassium 3.9 mmol/L (3.5-5.1)
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
--- NOTE | 2022-02-21 16:40 | Electrocardiogram Report ---
Test Reason : Blood Pressure : / mmHG Vent. Rate : 059 BPM Atrial Rate : 059 BPM P-R Int : 182 ms QRS Dur : 082 ms QT Int : 408 ms P-R-T Axes : 056 050 044 degrees QTc Int : 403 ms Sinus bradycardia with sinus arrhythmia Early repolarization Otherwise normal ECG When compared with ECG of 20-FEB-2022 11:19, No significant change was found Confirmed by Julian Johnson ([id number]) on 02/21/2022 4:40:25 PM Referred By: REFERRED SELF Confirmed By:Julian Johnson
[2022-02-21] MEDS: SUCRALFATE 1 GM/10 ML UDC PO SCH ×2 (16:48→22:12)
--- NOTE | 2022-02-21 18:04 | Gastrointestinal Consultation ---
Date of Consultation February 21, 2022 Assessment & Plan (1) Abdominal pain: (2) History of seizures: (3) Homicidal ideation: (4) Bipolar disorder: (5) Schizophrenia: Plan This a 26-year-old male patient with history of bipolar disorder, schizophrenia, recently having homicidal/suicidal ideations, episode of C. difficile last month that was treated with antibiotics, reporting some diarrhea and crampy abdominal pain that started this weekend. On exam, he is diffusely tender with even very minimal palpation, but no focused areas of tenderness, abdomen is soft and nondistended. CT and labs unremarkable. - Check C. difficile if able to if he has more diarrhea - Add daily PPI omeprazole 20 mg in the a.m. - Can add Bentyl 10 mg 4 times daily as needed for abdominal pain Would avoid tobacco, EtOH and marijuana - Diet as tolerated Can set up outpatient EGD to evaluate for presence of PUD Thank you for allowing us to participate in the care of this patient. Please call with any acute changes, questions or concerns. Please see addendum below with additional recommendation from my supervising physician. Supervising Physician Co-Signing Physician Notes I performed a history and physical examination of the patient today, including specifically on physical exam - soft abdomen. I have discussed the patient's management with the advanced practitioner. Please refer to the nurse practit yobany's note for the documented findings and plan of care. Patient with acute psych illness, incidentally reported abdominal pain, labs and CT scan normal. Recommend PPI and Bentyl and follow up as OP with GI clinic for further management. Recal GI if needed. History of Present Illness Reason for Consultation: persistent abdominal pain, possible PUD? Requesting Physician: Dr. Pickens Attending Physician: Shiva Pickens MD History of Present Illness Pt is a 26 y/o male with history of bipolar disorder, with recent psychiatric admission, asthma, tobacco use, seizure disorder, with recent noncompliance with medication. Has been having homicidal/suicidal ideations. We are consulted for reported abdominal pain patient states over the weekend, he developed crampy abdominal pain which is fairly constant. It can worsen when he eats. He had some diarrhea a few days ago, no diarrhea today. Denies melena or hematochezia, nausea vomiting, hematemesis, CP, SOB, syncope. Appetite has been somewhat decreased lately; he is not sure about weight loss. Last month he had an episode of C. difficile that he states was treated with antibiotics. Workup reveals a CT abdomen with no acute abnormality. A head CT was also clear. WBC 6, HGB 13, electrolytes and renal function, BUN and LFTs are within normal limits. Glucose and mag are WNL. History of tobacco use, occasional marijuana use and alcohol use, no alcohol for several weeks. He does not have a history of GI problems. Typically does not have reflux, no dysphagia or odynophagia. Allergies Allergy/AdvReac Type Severity Reaction Status Date / Time No Known Allergies Allergy Verified 01/25/22 20:09 Home Medications Medication Instructions Recorded Confirmed Type omeprazole 20 mg tablet,delayed 20 mg PO DAILY 12/17/20 02/20/22 History release albuterol sulfate 90 mcg/actuation 2 inh inhalation QID PRN Shortness 02/21/21 02/20/22 History aerosol inhaler Of Breath Or Wheezing divalproex 250 mg tablet,delayed 250 mg PO AMHS 01/22/22 02/20/22 History release divalproex 500 mg tablet,delayed 500 mg PO AMHS 01/22/22 02/20/22 History release (Depakote) hydroxyzine pamoate 50 mg capsule 50 mg PO BID 01/22/22 02/20/22 History quetiapine 100 mg tablet 100 mg PO BID 01/22/22 02/20/22 History Patient History Medical History ADHD Asthma Bipolar disorder Fracture of fifth metacarpal bone No pertinent family history Schizophrenia Seizures Unspecified episodic mood disorder Surgical History No significant past surgical history Social History Smoking Status: Current every day smoker Tobacco Type: Cigarettes Do You Dip or Chew Tobacco: Yes; Tobacco Cessation Education Requested by Patient: No Hx Alcohol Use: No Hx Substance Use: No Preferred Language: Solomon Islander Communication Ability: Effective 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 Beliefs That Will Affect Care: None marital status: Single Current Living Situation: Homeless Other Information That Helps Us Care for You: No Feels Safe at Home: Yes Safety Concerns: Feels Safe At This Time Assistive Devices: None Review of Systems Review of Systems: All systems reviewed & are unremarkable except as noted in HPI & below Physical Exam Constitutional: WD/WN, vitals as above (chronically ill) Eyes: PERRL, conjunctivae normal, anicteric sclerae ENMT: external ear and nose normal, oropharynx normal Respiratory: Normal respiratory effort, scattered wheezes bilaterally Cardiovascular: RRR, no murmur, no edema Gastrointestinal (Abdomen): Abdomen is soft, he is diffusely tender with very light/minimal palpation, no focused areas of tenderness. Bowel sounds x4 quadrants Skin: no rashes, warm and dry Psychiatric: A+Ox3, euthymic affect Results & Data ([facility]) Vital Signs (Past 12 Hours) Vital Signs Temp Pulse Pulse Resp BP Pulse Ox O2 Del Method 02/21/22 17:06 36.8 C 88 19 122/79 97 Room Air 02/21/22 14:14 83 02/21/22 10:10 36.4 C L 70 19 118/71 97 Room Air 02/21/22 10:00 Room Air 02/21/22 08:00 67 Laboratory Results 02/21/22 02/21/22 02/20/22 Range/Units 11:07 11:07 18:14 WBC 4.30 L (4.8-10.8) K/ul RBC 4.22 L (4.63-6.08) M/uL Hgb 13.1 L (14.0-18.0) g/dl Hct 38.2 L (40.1-51.0) % MCV 90.5 (80.0-100.0) fL MCH 31.0 (25.0-34.0) pg MCHC 34.3 (32.0-36.0) g/dL RDW Std Deviation 45.9 (36.4-46.3) fL RDW Coeff of Geraldine 13.8 (11.5-14.5) % Plt Count 220 (130-400) K/uL MPV 10.9 (9.4-12.4) fL Sodium 140 (136-145) mmol/L Potassium 3.9 (3.5-5.1) mmol/L Chloride 104 (98-107) mmol/L Carbon Dioxide 31 (21-32) mmol/L Anion Gap 5 (3-11) BUN 13 (6-23) mg/dl Creatinine 1.11 (0.6-1.4) mg/dl Est Cr Clr Drug Dosing 102.3 ml/min Est GFR ( Amer) 104.2 ml/min Est GFR (Non-Af Amer) 89.9 ml/min BUN/Creatinine Ratio 11.7 (10-20) Glucose 77 (70-99(Fasting)) mg/dl Lactate 0.6 (0.4-2.0) mmol/L Calcium 9.3 (8.5-10.1) mg/dl Magnesium 1.7 (1.7-2.4) mg/dl Diagnostic Findings CTAP: FINDINGS: Clear lung bases. Study is degraded by respiratory motion artifact. Unremarkable spleen, pancreas, gallbladder and adrenal glands. Unremarkable liver. Patency of the hepatic and portal veins. Unremarkable kidneys. No hydronephrosis. Urinary bladder wall thickening with partial distention. There is an equivocal urachal diverticulum of the urinary bladder which is likely secondary to partial distention, not visualized on the prior study. The prostate is prominent in size. Aorta and IVC are unremarkable. There is no lymphadenopathy identified. No bowel obstruction or bowel wall thickening. Moderate colonic fecal retention. The appendix measures upper limits of normal at 7 mm however demonstrates air within the tip and does not appear to be inflamed. No ascites or mesenteric inflammation. Unremarkable soft tissues. No acute fracture identified. IMPRESSION: 1. No acute intra-abdominal or intrapelvic abnormality. 2. No bowel obstruction or bowel wall thickening. (1) Abdominal pain Abdominal location: generalized Qualified Code(s): R10.84 - Generalized abdominal pain
--- NOTE | 2022-02-21 19:19 | Hospitalist Progress Note ---
Date of Service February 21, 2022 Assessment & Plan (1) Abdominal pain: Plan: Per admitting service notes with addendum: Mr. Samuel Sinclair is a 26 year old male who presented to the ED from the [facility] where he started to have abdominal pain. A CT abdomen and pelvis was negative. Patient reports that his pain has improved. Patient also has a complex seizure history and is not compliant with his medications nor his outpatient appointments. Reportedly he was admitted at [facility] 2 days ago for .seizures and was postictal on arrival. His last scheduled neuro appointment was 04/2021 and he did attend a sick telehealth appointment on 05/2021. Abdominal pain: Abdominal CT: Negative Still having significant pain with liquid diet GI consulted, no endoscopy recommended at this point As needed Bentyl, Protonix Advance diet as tolerated, monitor closely Schizophrenia: Bipolar disorder: ADHD: Prescribed Seroquel 100 mg p.o. twice daily; not compliant; continue while here Prescribed Divalproex for anxiety; not complaint; continue while here --Psychiatry service consulted, Seroquel be increased to 150 mg at bedtime Homicidal Ideation: Patient expressed that he does have thoughts of harming a woman named Darlyn and has a plan and weapon of choice Discussed with Psychiatry. patient is a voluntary 201. Ok to admit on telemetry Will place on 1:1 observation until cleared by Psych Psych does not feel patient is an elopement risk based on history; however, patient to be placed near nursing station and visible. --Per Dr. Cheek, patient can be removed from one-to-one observation, just every 15 minute checks H/O Seizures: Known seizure disorder Non-compliant with neurology appointments or medication use post-ictal presentation at [facility] on 02/18/22 Prescribed Depakote to 50 mg twice daily; not compliant; restarted in ED Prescribed Lacosamide; not compliant; restarted in ED seizure precautions ordered GERD: Takes omeprazole; continue Disposition: PCP: none; has had [address] Johnson April 2021 CODE STATUS: Full code VTE prophylaxis: Lovenox SQ Admission and Anticipated Discharge Date Admission Date: February 20, 2022 Subjective Follow-up for abdominal pain, homicidal ideations, etc. Seen resting in bed, sleeping but easily awakened States he still having generalized abdominal pain, cramping Was having nausea and pain with clear liquid diet last night No diarrhea, melena, hematochezia No chest pain, shortness of breath, palpitations, dizziness Still having homicidal ideation towards his ex-girlfriend Review of Systems Review of Systems: all noted and negative except for above Physical Exam Physical Exam: General- oriented x 3, not in distress, speaks in sentences with no effort or accessory muscle use Eyes- anicteric Neck- no JVD Lungs- clear breath sounds bilaterally, no crackles or wheezing Heart- normal rate, regular rhythm; no murmurs Abdomen- normal bowel sounds, nondistended, soft, positive moderate tenderness in all quadrants Extremities- no pretibial edema, no calf tenderness Neuro- alert, oriented x 3; no gross focal neurologic deficits Skin- warm & dry Results & Data Results & Data ([facility]) Vital Signs (Past 12 Hours) Vital Signs Temp Pulse Pulse Resp BP Pulse Ox O2 Del Method 02/21/22 17:06 36.8 C 88 19 122/79 97 Room Air 02/21/22 14:14 83 02/21/22 10:10 36.4 C L 70 19 118/71 97 Room Air 02/21/22 10:00 Room Air 02/21/22 08:00 67 all noted and reviewed including below (1) Abdominal pain Abdominal location: generalized Qualified Code(s): R10.84 - Generalized abdominal pain
[2022-02-21] MEDS ORDERED: DICYCLOMINE HCL 10 MG CAP PO PRN (19:35)
[2022-02-21] MEDS ORDERED: QUEtiapine FUMARATE 100 MG TABLET PO ONE (21:00)
[2022-02-22] MEDS: SUCRALFATE 1 GM/10 ML UDC PO SCH ×4 (06:07→20:24)
[2022-02-22] MEDS: PANTOprazole 40 MG in SYRINGE 0 ML IV SCH ×2 (08:39→20:22)
[2022-02-22] MEDS: DIVALPROEX DELAY RELEASE 250 MG TABEC PO SCH ×2 (08:40→20:20)
[2022-02-22] MEDS: LACOSAMIDE 50 MG TABLET PO SCH ×2 (08:40→21:26)
[2022-02-22] MEDS: DIVALPROEX DELAY RELEASE 500 MG TAB PO SCH ×2 (08:40→20:21)
[2022-02-22] MEDS: hydrOXYzine HCl 25 MG TAB PO SCH ×2 (08:41→20:25)
[2022-02-22 11:56] LABS: Adenovirus F 40/41 PCR Not Detected (NotDetected); Astrovirus PCR Not Detected (NotDetected); Cryptosporidium PCR Not Detected (NotDetected); Cyclospora cayetanensis PCR Not Detected (NotDetected); Entamoeba histolytica PCR Not Detected (NotDetected); Enteroaggregative E.coli(EAEC) Not Detected (NotDetected); Enteropathogenic E.coli (EPEC) DETECTED (NotDetected); Enterotoxigenic E.coli (ETEC) Not Detected (NotDetected); Giardia lamblia PCR Not Detected (NotDetected); Norovirus GI/GII PCR Not Detected (NotDetected); Plesiomonas shigelloides PCR Not Detected (NotDetected); Rotavirus A PCR Not Detected (NotDetected); Salmonella PCR Not Detected (NotDetected); Sapovirus PCR Not Detected (NotDetected); Shiga-like Toxin E.coli (STEC) Not Detected (NotDetected); Shigella/Enteroinvasive E.coli Not Detected (NotDetected); Vibrio cholerae PCR Not Detected (NotDetected); Vibrio species PCR Not Detected (NotDetected); Yersinia enterocolitica PCR Not Detected (NotDetected)
--- NOTE | 2022-02-22 12:26 | Communication Note ---
Date of Service: February 22, 2022 Interim progress reviewed. Patient sleeping on rounds, without psychiatric complaint. Remains cooperative with nursing staff, no evidence of severe mood dysregulation or dangerous impulsivity. July d/c q15 min checks. Dr. Escamilla updated. Support efforts to engage family in [facility]. Patient hoping for transportation assistance. Patient is psychiatrically stable for discharge when medically cleared. Ongoing outpatient therapy and involvement of justice system when needed is the most appropriate modality for his antisocial traits and ongoing medication management for his seizure disorder. Dosing Seroquel at HS only should improve compliance. He declined trial of a PARRISH. He is not committable under [place] mental health law as any statements he made on arrival to the hospital are not the result of ongoing shreyas/psychosis. ED had confirmed no active charges.
[2022-02-22 12:48] LABS: Campylobacter PCR Not Detected (NotDetected)
--- NOTE | 2022-02-22 13:45 | Hospitalist Progress Note ---
Date of Service February 22, 2022 Assessment & Plan (1) Abdominal pain: Plan: Mr. Samuel Sinclair is a 26 year old male who presented to the ED from the [facility] where he started to have abdominal pain. A CT abdomen and pelvis was negative. Patient reports that his pain has improved. Patient also has a complex seizure history and is not compliant with his medications nor his outpatient appointments. Reportedly he was admitted at [facility] 2 days ago for .seizures and was postictal on arrival. His last scheduled neuro appointment was 04/2021 and he did attend a sick telehealth appointment on 05/2021. Abdominal pain: Abdominal CT: Negative Still having significant pain with liquid diet GI consulted, no endoscopy recommended at this point As needed Bentyl, Protonix Advance diet as tolerated, monitor closely Stool occult blood has been negative PCR positive for EPEC Without any symptoms of diarrhea treatment is not needed Schizophrenia: Bipolar disorder: ADHD: Prescribed Seroquel 100 mg p.o. twice daily; not compliant; continue while here Prescribed Divalproex for anxiety; not complaint; continue while here --Psychiatry service consulted, Seroquel be increased to 150 mg at bedtime Appreciate psychiatric input and recommendation of 200 mg Seroquel on discharge He will get outpatient psychiatric as advised by the psychiatrist and does not require any inpatient psychiatric care at this moment Homicidal Ideation: Patient expressed that he does have thoughts of harming a woman named Darlyn and has a plan and weapon of choice Discussed with Psychiatry. patient is a voluntary 201. Ok to admit on telemetry Will place on 1:1 observation until cleared by Psych-can come off one-to-one sitter Psych does not feel patient is an elopement risk based on history; however, patient to be placed near nursing station and visible. --Per Dr. Cheek, patient can be removed from one-to-one observation, just every 15 minute checks Can come off 15 minutes check and when medically stable can be discharged from psychiatric point of view for continued outpatient psychiatric care H/O Seizures: Known seizure disorder Non-compliant with neurology appointments or medication use post-ictal presentation at [facility] on 02/18/22 Prescribed Depakote to 500 mg twice daily; not compliant; restarted in ED Prescribed Lacosamide; not compliant; restarted in ED seizure precautions ordered GERD: Takes omeprazole; continue Disposition: PCP: none; has had [address] Johnson April 2021 CODE STATUS: Full code VTE prophylaxis: Lovenox SQ Admission and Anticipated Discharge Date Admission Date: February 20, 2022 Subjective 02/22/2022 The patient was seen and examined in medical telemetry unit He complains to have abdominal pain without nausea and or vomiting He has been having normal bowel movement Complains to have generalized weakness Review of Systems Review of Systems: All systems reviewed and are unremarkable except as noted below Gastrointestinal: Still complains abdominal pain and abdomen is tender to palpate Physical Exam Physical Exam: Lying in bed comfortably Constitutional: + ill appearing and average body habitus Eyes: PERRL, conjunctivae normal, anicteric sclerae ENMT: external ear and nose normal, oropharynx normal Neck: trachea midline, no thyromegaly Respiratory: no respiratory distress Auscultation: lungs clear to auscultation bilaterally Cardiovascular: Rate/Rhythm: regular rate and regular rhythm; not tachycardic Heart Sounds: normal S1 and normal S2; no murmur Extremities: no edema Gastrointestinal (Abdomen): Inspection/Auscultation: + abdomen distended (Mildly distended) and normal bowel sounds Percussion/Palpation: + abdomen tender (Very tender to palpate specially on the right mid quadrant) and abdomen soft Musculoskeletal: No acute arthritis in any joint Neurologic: Alert, awake and oriented x3. Generally weak but no focal sensory or no motor deficit appreciated Lymphatic: no cervical or axillary lymphadenopathy Results & Data Results & Data ([facility]) Vital Signs (Past 12 Hours) Vital Signs Temp Pulse Pulse Resp BP Pulse Ox O2 Del Method 02/22/22 11:46 37.0 C 88 18 130/79 96 Room Air 02/22/22 10:46 36.7 C 93 H 20 147/74 H 95 Room Air 02/22/22 07:19 Room Air 02/22/22 07:00 79 02/22/22 04:00 36.7 C 82 18 130/88 98 Room Air Medications Administered Current Inpatient Medications Acetaminophen (Acetaminophen 325 Mg Tab) 650 mg PO Q4H PRN PRN Reason: Pain or Fever Stop: 03/22/22 15:27 Last Admin: 02/21/22 22:21 Dose: 650 mg Al Hydrox/Mg Hydrox/Simethicone (Aluminum/Magnesium Susp 30 Ml Udc) 15 ml PO Q4H PRN PRN Reason: Dyspepsia Stop: 03/22/22 15:27 Last Admin: 02/21/22 10:06 Dose: 15 ml Albuterol (Albuterol Hfa 8 Gm Inhaler) 2 puffs INH QIDR PRN PRN Reason: Shortness Of Breath Or Wheezing Stop: 03/22/22 17:48 Dicyclomine HCl (Dicyclomine Hcl 10 Mg Cap) 10 mg PO TID PRN PRN Reason: abdominal pain Stop: 03/23/22 20:59 Divalproex Sodium (Divalproex Delay Release 500 Mg Tab) 500 mg PO BID [facility] Stop: 03/22/22 13:59 Last Admin: 02/22/22 08:40 Dose: 500 mg Divalproex Sodium (Divalproex Delay Release 250 Mg Tabec) 250 mg PO AMHS [facility] Stop: 03/22/22 20:59 Last Admin: 02/22/22 08:40 Dose: 250 mg Hydroxyzine HCl (Hydroxyzine Hcl 25 Mg Tab) 50 mg PO BID [facility] Stop: 03/22/22 20:59 Last Admin: 02/22/22 08:41 Dose: 50 mg Pantoprazole Sodium 40 mg/ (Syringe) 10 mls @ 5 mls/min IV BID [facility] Stop: 03/23/22 10:14 Last Admin: 02/22/22 08:39 Dose: 5 mls/min Lacosamide (Lacosamide 50 Mg Tablet) 100 mg PO BID [facility] Stop: 03/22/22 13:59 Last Admin: 02/22/22 08:40 Dose: 100 mg Magnesium Hydroxide (Magnesium Hydroxide Susp 30 Ml Udc) 30 ml PO Q12H PRN PRN Reason: Constipation Stop: 03/22/22 15:27 Ondansetron HCl (Ondansetron Inj 2 Mg/Ml 2 Ml Vial) 4 mg IV Q6H PRN PRN Reason: Nausea Stop: 03/22/22 15:27 Quetiapine Fumarate (Quetiapine Fumarate 100 Mg Tablet) 150 mg PO HS [facility] Stop: 03/24/22 20:59 Sucralfate (Sucralfate 1 Gm/10 Ml Udc) 1 gm PO ACHS [facility] Stop: 03/23/22 16:29 Last Admin: 02/22/22 10:48 Dose: 1 gm (1) Abdominal pain Abdominal location: generalized Qualified Code(s): R10.84 - Generalized abdominal pain
--- NOTE | 2022-02-22 14:19 | Electrocardiogram Report ---
Test Reason : Blood Pressure : / mmHG Vent. Rate : 077 BPM Atrial Rate : 077 BPM P-R Int : 186 ms QRS Dur : 080 ms QT Int : 368 ms P-R-T Axes : 046 046 041 degrees QTc Int : 416 ms Normal sinus rhythm Early repolarization Normal ECG When compared with ECG of 21-FEB-2022 06:27, No significant change was found Confirmed by Julian Johnson [id number]) on 02/22/2022 2:19:20 PM Referred By: REFERRED SELF Confirmed By:Julian Johnson
[2022-02-22] MEDS: ACETAMINOPHEN 325 MG TAB PO PRN (18:17)
[2022-02-22] MEDS: QUEtiapine FUMARATE 100 MG TABLET PO SCH (20:22)
[2022-02-23] MEDS: DIVALPROEX DELAY RELEASE 500 MG TAB PO SCH ×2 (08:05→21:10)
[2022-02-23] MEDS: DIVALPROEX DELAY RELEASE 250 MG TABEC PO SCH ×2 (08:05→21:11)
[2022-02-23] MEDS: SUCRALFATE 1 GM/10 ML UDC PO SCH ×4 (08:05→21:13)
[2022-02-23] MEDS: hydrOXYzine HCl 25 MG TAB PO SCH ×2 (08:58→21:14)
[2022-02-23] MEDS: PANTOprazole 40 MG in SYRINGE 0 ML IV SCH ×2 (08:58→21:12)
[2022-02-23] MEDS: LACOSAMIDE 50 MG TABLET PO SCH ×2 (08:58→21:09)
[2022-02-23 10:07] LABS: Hematocrit (blood only) 38.2 % (40.1-51.0); Hemoglobin 13.1 g/dl (14.0-18.0); Mean Corpuscular Hemoglobin 30.8 pg (25.0-34.0); Mean Corpuscular Hgb Conc 34.3 g/dL (32.0-36.0); Mean Corpuscular Volume 89.7 fL (80.0-100.0); Mean Platelet Volume 10.9 fL (9.4-12.4); Platelet Count 218 K/uL (130-400); RDW Coefficient of Variation 13.7 % (11.5-14.5); RDW Standard Deviation 45.3 fL (36.4-46.3); Red Blood Count 4.26 M/uL (4.63-6.08); White Blood Count 4.88 K/ul (4.8-10.8)
[2022-02-23 10:29] LABS: BUN Creatinine Ratio 9.5 (10-20); Calcium 9.2 mg/dl (8.5-10.1); Creatinine Clr Calc Pharmacy 108.1 ml/min; Est GFR (African American) 111.4 ml/min; Est GFR (Non-African American) 96.1 ml/min; Potassium 3.8 mmol/L (3.5-5.1)
[2022-02-23 10:53] LABS: Basophils # (auto) 0.02 K/uL (0-0.2); Basophils % (auto) 0.4 %; Eosinophils # (auto) 0.58 K/uL (0-0.50); Eosinophils % (auto) 11.9 %; Immature Granulocytes # (auto) 0.01 K/uL (0.00-0.02); Immature Granulocytes % (auto) 0.2 %; Lymphocytes # (auto) 2.53 K/uL (1.2-3.4); Lymphocytes % (auto) 51.8 %; Monocytes # (auto) 0.43 K/uL (0.24-0.82); Monocytes % (auto) 8.8 %; Neutrophils # (auto) 1.31 K/uL (1.4-6.5); Neutrophils % (auto) 26.9 %
--- NOTE | 2022-02-23 14:59 | Hospitalist Progress Note ---
Date of Service February 23, 2022 Assessment & Plan (1) Abdominal pain: Plan: Mr. Samuel Sinclair is a 26 year old male who presented to the ED from the [facility] where he started to have abdominal pain. A CT abdomen and pelvis was negative. Patient reports that his pain has improved. Patient also has a complex seizure history and is not compliant with his medications nor his outpatient appointments. Reportedly he was admitted at [facility] 2 days ago for .seizures and was postictal on arrival. His last scheduled neuro appointment was 04/2021 and he did attend a sick telehealth appointment on 05/2021. Abdominal pain: Abdominal CT: Negative Still having significant pain with liquid diet GI consulted, no endoscopy recommended at this point As needed Bentyl, Protonix Advance diet as tolerated, monitor closely Stool occult blood has been negative PCR positive for EPEC Without any symptoms of diarrhea treatment is not needed Abdominal pain is improved and the blood counts remain unremarkable Plan to discharge tomorrow if remains stable Schizophrenia: Bipolar disorder: ADHD: Prescribed Seroquel 100 mg p.o. twice daily; not compliant; continue while here Prescribed Divalproex for anxiety; not complaint; continue while here --Psychiatry service consulted, Seroquel be increased to 150 mg at bedtime Appreciate psychiatric input and recommendation of 200 mg Seroquel on discharge He will get outpatient psychiatric as advised by the psychiatrist and does not require any inpatient psychiatric care at this moment Plan to get a bus ticket to go to [place] on discharge and get psychiatric care as an outpatient Homicidal Ideation: Patient expressed that he does have thoughts of harming a woman named Darlyn and has a plan and weapon of choice Discussed with Psychiatry. patient is a voluntary 201. Ok to admit on telemetry Will place on 1:1 observation until cleared by Psych-can come off one-to-one sitter Psych does not feel patient is an elopement risk based on history; however, patient to be placed near nursing station and visible. --Per Dr. Cheek, patient can be removed from one-to-one observation, just every 15 minute checks Can come off 15 minutes check and when medically stable can be discharged from psychiatric point of view for continued outpatient psychiatric care No more homicidal and/or suicidal ideation H/O Seizures: Known seizure disorder Non-compliant with neurology appointments or medication use post-ictal presentation at [facility] on 02/18/22 Prescribed Depakote to 500 mg twice daily; not compliant; restarted in ED Prescribed Lacosamide; not compliant; restarted in ED seizure precautions ordered GERD: Takes omeprazole; continue Disposition: PCP: none; has had [address] Johnson April 2021 CODE STATUS: Full code VTE prophylaxis: Lovenox SQ Admission and Anticipated Discharge Date Admission Date: February 20, 2022 Subjective 02/22/2022 The patient was seen and examined in medical telemetry unit He complains to have abdominal pain without nausea and or vomiting He has been having normal bowel movement Complains to have generalized weakness 02/23/2022 The patient was seen and examined in medical telemetry unit He has been feeling better but still complains to have abdominal pain No nausea no vomiting No significant diarrhea and/or blood in the stool Review of Systems Review of Systems: All systems reviewed and are unremarkable except as noted below Gastrointestinal: Still complains abdominal pain and abdomen is tender to palpate Physical Exam Physical Exam: Lying in bed comfortably Constitutional: + ill appearing and average body habitus Eyes: PERRL, conjunctivae normal, anicteric sclerae ENMT: external ear and nose normal, oropharynx normal Neck: trachea midline, no thyromegaly Respiratory: no respiratory distress Auscultation: lungs clear to auscultation bilaterally Cardiovascular: Rate/Rhythm: regular rate and regular rhythm; not tachycardic Heart Sounds: normal S1 and normal S2; no murmur Extremities: no edema Gastrointestinal (Abdomen): Inspection/Auscultation: + abdomen distended (Mildly distended) and normal bowel sounds Percussion/Palpation: + abdomen tender (Minimally tender today) and abdomen soft Musculoskeletal: No acute arthritis in any joint Neurologic: plantar reflexes intact bilaterally and moves all extremities; no focal motor deficits Lymphatic: no cervical or axillary lymphadenopathy Results & Data Results & Data ([facility]) Vital Signs (Past 12 Hours) Vital Signs Temp Pulse Resp BP Pulse Ox O2 Del Method 02/23/22 11:42 36.6 C 75 16 127/90 96 Room Air 02/23/22 07:55 36.5 C 66 16 121/72 97 Room Air 02/23/22 03:17 36.9 C 59 L 16 123/79 97 Room Air Laboratory Results Short CBC 02/23/22 Range/Units 09:55 WBC 4.88 (4.8-10.8) K/ul Hgb 13.1 L (14.0-18.0) g/dl Hct 38.2 L (40.1-51.0) % Plt Count 218 (130-400) K/uL [facility] 02/23/22 09:55 Sodium 139 Potassium 3.8 Chloride 104 Carbon Dioxide 30 BUN 10 Creatinine 1.05 Glucose 91 Calcium 9.2 Medications Administered Current Inpatient Medications Acetaminophen (Acetaminophen 325 Mg Tab) 650 mg PO Q4H PRN PRN Reason: Pain or Fever Stop: 03/22/22 15:27 Last Admin: 02/22/22 18:17 Dose: 650 mg Al Hydrox/Mg Hydrox/Simethicone (Aluminum/Magnesium Susp 30 Ml Udc) 15 ml PO Q4H PRN PRN Reason: Dyspepsia Stop: 03/22/22 15:27 Last Admin: 02/21/22 10:06 Dose: 15 ml Albuterol (Albuterol Hfa 8 Gm Inhaler) 2 puffs INH QIDR PRN PRN Reason: Shortness Of Breath Or Wheezing Stop: 03/22/22 17:48 Dicyclomine HCl (Dicyclomine Hcl 10 Mg Cap) 10 mg PO TID PRN PRN Reason: abdominal pain Stop: 03/23/22 20:59 Last Admin: 02/22/22 18:17 Dose: 10 mg Divalproex Sodium (Divalproex Delay Release 500 Mg Tab) 500 mg PO BID [facility] Stop: 03/22/22 13:59 Last Admin: 02/23/22 08:05 Dose: 500 mg Divalproex Sodium (Divalproex Delay Release 250 Mg Tabec) 250 mg PO AMHS [facility] Stop: 03/22/22 20:59 Last Admin: 02/23/22 08:05 Dose: 250 mg Hydroxyzine HCl (Hydroxyzine Hcl 25 Mg Tab) 50 mg PO BID [facility] Stop: 03/22/22 20:59 Last Admin: 02/23/22 08:58 Dose: 50 mg Pantoprazole Sodium 40 mg/ (Syringe) 10 mls @ 5 mls/min IV BID [facility] Stop: 03/23/22 10:14 Last Admin: 02/23/22 08:58 Dose: 5 mls/min Lacosamide (Lacosamide 50 Mg Tablet) 100 mg PO BID [facility] Stop: 03/22/22 13:59 Last Admin: 02/23/22 08:58 Dose: 100 mg Magnesium Hydroxide (Magnesium Hydroxide Susp 30 Ml Udc) 30 ml PO Q12H PRN PRN Reason: Constipation Stop: 03/22/22 15:27 Ondansetron HCl (Ondansetron Inj 2 Mg/Ml 2 Ml Vial) 4 mg IV Q6H PRN PRN Reason: Nausea Stop: 03/22/22 15:27 Quetiapine Fumarate (Quetiapine Fumarate 100 Mg Tablet) 150 mg PO HS [facility] Stop: 03/24/22 20:59 Last Admin: 02/22/22 20:22 Dose: 150 mg Sucralfate (Sucralfate 1 Gm/10 Ml Udc) 1 gm PO ACHS [facility] Stop: 03/23/22 16:29 Last Admin: 02/23/22 11:16 Dose: 1 gm (1) Abdominal pain Abdominal location: generalized Qualified Code(s): R10.84 - Generalized abdominal pain
[2022-02-23] MEDS: QUEtiapine FUMARATE 100 MG TABLET PO SCH (21:11)
[2022-02-24] MEDS: SUCRALFATE 1 GM/10 ML UDC PO SCH ×2 (06:38→11:45)
[2022-02-24] MEDS: LACOSAMIDE 50 MG TABLET PO SCH (09:00)
[2022-02-24] MEDS: PANTOprazole 40 MG in SYRINGE 0 ML IV SCH (09:00)
[2022-02-24] MEDS: DIVALPROEX DELAY RELEASE 250 MG TABEC PO SCH (09:01)
[2022-02-24] MEDS: DIVALPROEX DELAY RELEASE 500 MG TAB PO SCH (09:01)
[2022-02-24] MEDS: hydrOXYzine HCl 25 MG TAB PO SCH (09:02)
--- NOTE | 2022-02-24 11:51 | Hospitalist Progress Note ---
Date of Service February 24, 2022 Assessment & Plan (1) Abdominal pain: Plan: Mr. Samuel Sinclair is a 26 year old male who presented to the ED from the [facility] where he started to have abdominal pain. A CT abdomen and pelvis was negative. Patient reports that his pain has improved. Patient also has a complex seizure history and is not compliant with his medications nor his outpatient appointments. [facility] and was postictal on arrival. His last scheduled neuro appointment was 04/2021 and he did attend a sick telehealth appointment on 05/2021. Abdominal pain: Abdominal CT: Negative Still having significant pain with liquid diet GI consulted, no endoscopy recommended at this point As needed Bentyl, Protonix Advance diet as tolerated, monitor closely Stool occult blood has been negative PCR positive for EPEC Without any symptoms of diarrhea treatment is not needed Remains stable and denies any more abdominal pain, nausea or vomiting or diarrhea He has been asking when he can be discharged Discussed with the family caseworker and he will be discharged this afternoon Schizophrenia: Bipolar disorder: ADHD: Prescribed Seroquel 100 mg p.o. twice daily; not compliant; continue while here Prescribed Divalproex for anxiety; not complaint; continue while here --Psychiatry service consulted, Seroquel be increased to 150 mg at bedtime Appreciate psychiatric input and recommendation of 200 mg Seroquel on discharge He will get outpatient psychiatric as advised by the psychiatrist and does not require any inpatient psychiatric care at this moment Plan to get a bus ticket to go to [place] on discharge and get psychiatric care as an outpatient Strongly advised to keep appointment with his outpatient psychiatrist Homicidal Ideation: Patient expressed that he does have thoughts of harming a woman named Darlyn and has a plan and weapon of choice Discussed with Psychiatry. patient is a voluntary 201. Ok to admit on telemetry Will place on 1:1 observation until cleared by Psych-can come off one-to-one sitter Psych does not feel patient is an elopement risk based on history; however, patient to be placed near nursing station and visible. --Per Dr. Cheek, patient can be removed from one-to-one observation, just every 15 minute checks Can come off 15 minutes check and when medically stable can be discharged from psychiatric point of view for continued outpatient psychiatric care No more homicidal and/or suicidal ideation H/O Seizures: Known seizure disorder Non-compliant with neurology appointments or medication use [facility]22 Prescribed Depakote to 500 mg twice daily; not compliant; restarted in ED Prescribed Lacosamide; not compliant; restarted in ED seizure precautions ordered No seizures since admission GERD: Takes omeprazole; continue Disposition: PCP: none; has had [address] Johnson April 2021 CODE STATUS: Full code VTE prophylaxis: Lovenox SQ Will be discharged this afternoon Admission and Anticipated Discharge Date Admission Date: February 20, 2022 Subjective 02/22/2022 The patient was seen and examined in medical telemetry unit He complains to have abdominal pain without nausea and or vomiting He has been having normal bowel movement Complains to have generalized weakness 02/23/2022 The patient was seen and examined in medical telemetry unit He has been feeling better but still complains to have abdominal pain No nausea no vomiting No significant diarrhea and/or blood in the stool 02/24/2022 The patient was seen and examined in medical telemetry unit He has been stable and denies any more abdominal pain, nausea and or vomiting Is asking when he can be discharged Review of Systems Review of Systems: All systems reviewed and are unremarkable except as noted below Gastrointestinal: Still complains abdominal pain and abdomen is tender to palpate Physical Exam Physical Exam: Lying in bed comfortably Constitutional: + ill appearing and average body habitus Eyes: PERRL, conjunctivae normal, anicteric sclerae ENMT: external ear and nose normal, oropharynx normal Neck: trachea midline, no thyromegaly Respiratory: no respiratory distress Auscultation: lungs clear to auscultation bilaterally Cardiovascular: Rate/Rhythm: regular rate and regular rhythm; not tachycardic Heart Sounds: normal S1 and normal S2; no murmur Extremities: no edema Gastrointestinal (Abdomen): Inspection/Auscultation: normal bowel sounds; abdomen not distended (Mildly distended) Percussion/Palpation: abdomen soft; abdomen nontender (Minimally tender today) Musculoskeletal: No acute arthritis involving any joint Neurologic: plantar reflexes intact bilaterally and moves all extremities; no focal motor deficits Lymphatic: no cervical or axillary lymphadenopathy Results & Data Results & Data ([facility]) Vital Signs (Past 12 Hours) Vital Signs Temp Pulse Pulse Resp BP BP Pulse Ox 02/24/22 08:20 36.6 C 87 18 133/91 96 02/24/22 07:38 79 02/24/22 02:50 36.9 C 78 16 132/77 96 O2 Del Method 02/24/22 08:20 Room Air 02/24/22 07:38 02/24/22 02:50 Room Air Medications Administered Current Inpatient Medications Acetaminophen (Acetaminophen 325 Mg Tab) 650 mg PO Q4H PRN PRN Reason: Pain or Fever Stop: 03/22/22 15:27 Last Admin: 02/22/22 18:17 Dose: 650 mg Al Hydrox/Mg Hydrox/Simethicone (Aluminum/Magnesium Susp 30 Ml Udc) 15 ml PO Q4H PRN PRN Reason: Dyspepsia Stop: 03/22/22 15:27 Last Admin: 02/21/22 10:06 Dose: 15 ml Albuterol (Albuterol Hfa 8 Gm Inhaler) 2 puffs INH QIDR PRN PRN Reason: Shortness Of Breath Or Wheezing Stop: 03/22/22 17:48 Dicyclomine HCl (Dicyclomine Hcl 10 Mg Cap) 10 mg PO TID PRN PRN Reason: abdominal pain Stop: 03/23/22 20:59 Last Admin: 02/22/22 18:17 Dose: 10 mg Divalproex Sodium (Divalproex Delay Release 500 Mg Tab) 500 mg PO BID [facility] Stop: 03/22/22 13:59 Last Admin: 02/24/22 09:01 Dose: 500 mg Divalproex Sodium (Divalproex Delay Release 250 Mg Tabec) 250 mg PO AMHS [facility] Stop: 03/22/22 20:59 Last Admin: 02/24/22 09:01 Dose: 250 mg Hydroxyzine HCl (Hydroxyzine Hcl 25 Mg Tab) 50 mg PO BID [facility] Stop: 03/22/22 20:59 Last Admin: 02/24/22 09:02 Dose: 50 mg Pantoprazole Sodium 40 mg/ (Syringe) 10 mls @ 5 mls/min IV BID [facility] Stop: 03/23/22 10:14 Last Admin: 02/24/22 09:00 Dose: 5 mls/min Lacosamide (Lacosamide 50 Mg Tablet) 100 mg PO BID [facility] Stop: 03/22/22 13:59 Last Admin: 02/24/22 09:00 Dose: 100 mg Magnesium Hydroxide (Magnesium Hydroxide Susp 30 Ml Udc) 30 ml PO Q12H PRN PRN Reason: Constipation Stop: 03/22/22 15:27 Ondansetron HCl (Ondansetron Inj 2 Mg/Ml 2 Ml Vial) 4 mg IV Q6H PRN PRN Reason: Nausea Stop: 03/22/22 15:27 Quetiapine Fumarate (Quetiapine Fumarate 200 Mg Tab) 200 mg PO [facility] Stop: 03/26/22 20:59 Sucralfate (Sucralfate 1 Gm/10 Ml Udc) 1 gm PO [facility] Stop: 03/23/22 16:29 Last Admin: 02/24/22 11:45 Dose: 1 gm (1) Abdominal pain Abdominal location: generalized Qualified Code(s): R10.84 - Generalized abdominal pain
[2022-02-24] MEDS ORDERED: QUEtiapine FUMARATE 200 MG TAB PO SCH (21:00)
--- NOTE | 2022-02-25 08:38 | Discharge Summary ---
Date of Service February 24, 2022 Admission HPI Per Admitting Provider Mr. Samuel Sinclair is a 26 year old male who presented to the ED from the [facility] where he started to have abdominal pain. A CT abdomen and pelvis was negative. Patient reports that his pain has improved. Patient also has a complex seizure history and is not compliant with his medications nor his outpatient appointments. Reportedly he was admitted at [facility] 2 days ago for seizures and was postictal on arrival there. His last scheduled neuro appointment was 04/2021 and he did attend a telehealth appointment on 05/2021. Patient was noted to have C. difficile at [facility] admission and started on vancomycin however patient declined taking it. We will recheck here in ED BMP and CBC are unremarkable. Troponin negative. Patient reports not taking his prescribed Depakote or Seroquel (restarted in ED). Recently admitted to the [facility] but says he doesn't feel safe there. In the ED, told staff he wants to be voluntarily admitted for 201 homicidal ideation with a plan to stab his girlfriend with a knife and has intent to do so; Psych aware and 1:[address] Other PMH includes schizophrenia, bipolar and ADHD. Patient was lying flat in his bed asleep when I entered the room. He startled to verbal stimuli and denied having any conversation with me but did state that he was not having any pain that he knew of. Patient is hemodynamically stable. I did discuss directly with on-call psychiatry who stated that based on his current presentation she would feel comfortable with him being admitted on MedSurg telemetry with a one-to-one for safety until cleared by psychiatry. Patient does not appear to be a threat to himself and was not aggressive during evaluation; however, should be placed near nursing station with full visibility of patient. Patient will be admitted for further evaluation and management. Please see A/P for further details. Admission Exam Per Admitting Provider Physical Exam: Neuro: AAOx1, groggy, PERRLA,pupils 4cm bilaterally -no aphagia, memory changes, CNII-XII grossly intact HEENT: head normocephalic, moist mucus membranes CV: S1/S2, (-) M/G/R, (-) edema, cap refill < 3 seconds Resp: Lungs CTA in all rodarte. On RA GI: Abdomen S/NT/ND, Ax4 bowel sounds, (-) CVA tenderness Musculoskeletal: 5/5 B/L UE strength, 5/5 B/L LE strength. No gait disturbance Skin: (-) rashes , (-) erythema. Psych: startling mood Principal Diagnosis Abdominal pain-resolved, bipolar disorder, ADHD, schizophrenia, seizure disorder Discharge Exam Lying in bed comfortably Constitutional + ill appearing and average body habitus Eyes PERRL, conjunctivae normal, anicteric sclerae ENMT external ear and nose normal, oropharynx normal Neck trachea midline, no thyromegaly Respiratory no respiratory distress Auscultation: lungs clear to auscultation bilaterally Cardiovascular Rate/Rhythm: regular rate and regular rhythm; not tachycardic Heart Sounds: normal S1 and normal S2; no murmur Extremities: no edema Gastrointestinal (Abdomen) Inspection/Auscultation: normal bowel sounds; abdomen not distended (Mildly distended) Percussion/Palpation: abdomen soft; abdomen nontender (Minimally tender today) Neurologic plantar reflexes intact bilaterally and moves all extremities; no focal motor deficits Lymphatic no cervical or axillary lymphadenopathy Discharge Data Allergies Allergy/AdvReac Type Severity Reaction Status Date / Time No Known Allergies Allergy Verified 01/25/22 20:09 Consultations 02/20/22 14:21 ED Decision to Admit Stat 02/20/22 14:58 Consult Psychiatry Routine 02/21/22 10:01 Consult Gastroenterology Routine Ordered Studies 02/20/22 10:57 CT abd pelvis IV con only Stat 02/20/22 10:58 CT head/brain wo con Stat Hospital Course (1) Abdominal pain: Mr. Samuel Sinclair is a 26 year old male who presented to the ED from the [facility] where he started to have abdominal pain. A CT abdomen and pelvis was negative. Patient reports that his pain has improved. Patient also has a complex seizure history and is not compliant with his medications nor his outpatient appointments. Reportedly he was admitted at [facility] 2 days ago for .seizures and was postictal on arrival. His last scheduled neuro appointment was 04/2021 and he did attend a sick telehealth appointment on 05/2021. Abdominal pain: Abdominal CT: Negative Still having significant pain with liquid diet GI consulted, no endoscopy recommended at this point As needed Bentyl, Protonix Advance diet as tolerated, monitor closely Stool occult blood has been negative PCR positive for EPEC Without any symptoms of diarrhea treatment is not needed Remains stable and denies any more abdominal pain, nausea or vomiting or diarrhea He has been asking when he can be discharged Discussed with the case repairer and he will be discharged this afternoon Schizophrenia: Bipolar disorder: ADHD: Prescribed Seroquel 100 mg p.o. twice daily; not compliant; continue while here Prescribed Divalproex for anxiety; not complaint; continue while here --Psychiatry service consulted, Seroquel be increased to 150 mg at bedtime Appreciate psychiatric input and recommendation of 200 mg Seroquel on discharge He will get outpatient psychiatric as advised by the psychiatrist and does not require any inpatient psychiatric care at this moment Plan to get a bus ticket to go to [place] on discharge and get psychiatric care as an outpatient Strongly advised to keep appointment with his outpatient psychiatrist Homicidal Ideation: Patient expressed that he does have thoughts of harming a woman named Darlyn and has a plan and weapon of choice Discussed with Psychiatry. patient is a voluntary 201. Ok to admit on telemetry Will place on 1:1 observation until cleared by Psych-can come off one-to-one sitter Psych does not feel patient is an elopement risk based on history; however, patient to be placed near nursing station and visible. --Per Dr. Cheek, patient can be removed from one-to-one observation, just every 15 minute checks Can come off 15 minutes check and when medically stable can be discharged from psychiatric point of view for continued outpatient psychiatric care No more homicidal and/or suicidal ideation H/O Seizures: Known seizure disorder Non-compliant with neurology appointments or medication use post-ictal presentation at [facility] on 02/18/22 Prescribed Depakote to 500 mg twice daily; not compliant; restarted in ED Prescribed Lacosamide; not compliant; restarted in ED seizure precautions ordered No seizures since admission GERD: Takes omeprazole; continue Disposition: PCP: none; has had [address] Johnson April 2021 CODE STATUS: Full code VTE prophylaxis: Lovenox SQ Will be discharged this afternoon Total Time Total Time Spent Total Time Spent (In Minutes): 35 minutes Discharge Plan Discharge Items Patient Disposition: Home - Self-Care Reason For Visit: ABDOMINAL PAIN,SEIZURE DISORDER,HOMICIDAL IDEATION Discharge Diagnosis: Abdominal pain-resolved, bipolar disorder, ADHD, schizophrenia, seizure disorder Condition on Discharge: Good Activity: Resume your previous activity Non-emergency contact: Primary Care Provider Call non-emergency contact if: you have any medication questions and your symptoms worsen Follow-up/Referrals: [facility] [Other] (to help with medications.) [facility] [Other] (To help with medications.) PCP,NO [Primary Care Provider] - Diet: Regular Addtl Attending Provider Instructions: Strongly advised to keep appointments with your healthcare providers Take your medications as advised Pending Studies at Discharge: No Stand-Alone Forms: My [facility] [employer], Smoking Cessation Medications and DC Order Prescriptions: New lacosamide [Vimpat] 50 mg Tablet 100 mg PO BID 30 Days Qty: 120 0RF Continued divalproex 250 mg tablet,delayed release (DR/EC) 250 mg PO AMHS 30 Days Qty: 60 0RF hydroxyzine pamoate 50 mg Capsule 50 mg PO BID 30 Days Qty: 60 0RF divalproex [Depakote] 500 mg Tablet,Delayed Release (Dr/Ec) 500 mg PO AMHS 30 Days Qty: 60 0RF albuterol sulfate 90 mcg/actuation HFA aerosol inhaler 2 inh inhalation QID PRN (Reason: Shortness Of Breath Or Wheezing) Qty: 1 0RF omeprazole 20 mg Tablet,Delayed Release (Dr/Ec) 20 mg PO DAILY 30 Days Qty: 30 0RF Changed quetiapine 100 mg tablet 200 mg PO BID 30 Days Qty: 60 0RF Discharge Orders: Discharge Order (Routine); Ordered 02/24/22 Ordered By: Radha Escamilla Admission Data Admit Date/Time: 02/20/22 14:58 Attending Provider: Radha Escamilla Admit Provider: Rosie Carranza Primary Care Provider: PCP,NO Other Providers: Sarah Lawson ; Nellie Cheek ; Rosie Carranza ; Marianne Mendez ; Shiva Pickens Other Interventions: Discharge Summary Assessment (RN) Last Done: 02/24/22 12:14
== END 2022-02-24 13:41 | disposition home or self-care (01) | DRG 880 ==
LOC: ED 10:18 → EDINP 14:58 → SUATTDRO 14:58 → 2W 15:11